=== PATIENT | female | born 1985 ===

== ENCOUNTER 2018-07-06 12:29 | Emergency (ER) | payer MEDICAID ==
[~2018-07-06] VITALS: Ht 154.9 cm; Wt 56.2 kg
[2018-07-06 12:36] VITALS: BP 104/72
[2018-07-06] MEDS ORDERED: NKM (12:42)
[2018-07-06] MEDS ORDERED: ZITHROMAX250 MG ORAL (12:54)
--- NOTE | 2018-07-06 12:54 | Emergency Room Report ---
History of Present Illness General Chief Complaint: Sore Throat Source: Patient Present Illness HPI 32-year-old female with no significant past medical history here complaining of 2 days of pain in her throat and enlarged cervical lymph nodes. Denies ear pain , rhinorrhea, congestion, cough, shortness of breath, palpitation, nausea vomiting, abdominal pain, and all other associated symptoms. Is rating the pain 5 out of 10, difficulty to swallow, no pain radiation, she has been taking ibuprofen with minimal relief. Allergies: Coded Allergies: AMOXICILLIN (Verified Allergy, Unknown, 07/06/18) Patient History Past Medical History: see triage record Past Surgical History: unable to obtain Pertinent Family History: none Now: No - currently on her period Immunizations: UTD Reviewed Nursing Documentation: PMH: Agreed; PSxH: Agreed Nursing Documentation-PMH Hx Asthma: Yes - seasonal Review of Systems All Other Systems: negative except mentioned in HPI Physical Exam Vital Signs Date Time Temp Pulse Resp B/P (MAP) Pulse Ox O2 Delivery O2 Flow Rate FiO2 07/06/18 12:36 98.1 18 104/72 100 Room Air 07/06/18 12:36 76 Sp02 EP Interpretation: reviewed, normal General Appearance: normal inspection, well appearing, no apparent distress, alert Head: normocephalic, atraumatic Eyes: bilateral eye normal inspection, bilateral eye PERRL ENT: hearing grossly normal, no angioedema, normal voice, TMs + canals normal, uvula midline, moist mucus membranes, tonsillar swelling, tonsillar exudate - bilaterally Neck: full range of motion, supple, thyroid normal, other - ant cervical lymphadenopathy Respiratory: normal inspection, chest non-tender, lungs clear, no rhonchi, no wheezing Cardiovascular #1: normal inspection, normal peripheral pulses, no edema, no murmur Gastrointestinal: normal inspection, non tender, soft Genitourinary: no CVA tenderness Musculoskeletal: normal inspection, back normal Neurologic: normal inspection, alert, oriented x3 Psychiatric: normal inspection, judgement/insight normal Skin: normal inspection, no rash, warm/dry Lymphatic: adenopathy - ant cervical Medical Decision Making PA Attestation All my diagnosis and treatment plans were reviewed ad discussed with my supervising physician Dr. Camarillo Diagnostic Impression: Primary Impression: Strep pharyngitis ER Course 32-year-old female with no significant past medical history here complaining of 2 days of pain in her throat and enlarged cervical lymph nodes. Denies ear pain , rhinorrhea, congestion, cough, shortness of breath, palpitation, nausea vomiting, abdominal pain, and all other associated symptoms. Is rating the pain 5 out of 10, difficulty to swallow, no pain radiation, she has been taking ibuprofen with minimal relief. Ddx considered but are not limited to:pharyngitis, strep pharyngitis, URI, peritonsillar abscess Vital signs: are WNL, pt. is afebrile H&PE are most consistent with strep pharyngitis ORDERS: azithromycin ED INTERVENTIONS: None required at this time. DISCHARGE: At this time pt. is stable for d/c to home. Will provide printed patient care instructions, and any necessary prescriptions. Care plan and follow up instructions have been discussed with the patient prior to discharge. Last Vital Signs Date Time Temp Pulse Resp B/P (MAP) Pulse Ox O2 Delivery O2 Flow Rate FiO2 07/06/18 12:36 98.1 76 18 100 Room Air 07/06/18 12:36 104/72 Disposition: HOME, SELF-CARE Condition: Stable Scripts Azithromycin* (ZITHROMAX*) 250 Mg Tablet 250 MG ORAL DAILY, #6 TAB 0 Refills Take two tables once daily for 1 day, then one tablet once daily for 4 days. Prov: Tracey Adam 07/06/18 Patient Instructions: Strep Throat Additional Instructions: follow up With primary care provider, avoid spicy, sweet and greasy food Tracey Adam July 06, 2018 12:54
[2018-07-06 12:58] VITALS: BP 104/72
== END 2018-07-06 12:58 | disposition home or self-care (01) ==
LOC: EMR 12:55
DX: J02.0 Streptococcal pharyngitis (principal); Z88.0 Allergy status to penicillin
CPT/HCPCS: 99282

== ENCOUNTER 2019-04-07 13:44 | Emergency (ER) | payer SELFPAY ==
[~2019-04-07] VITALS: Ht 154.9 cm; Wt 58.1 kg
[~2019-04-07 13:44] MED LIST: NKM; ZITHROMAX250 MG ORAL
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
[2019-04-07 14:19] VITALS: BP 125/79
--- NOTE | 2019-04-07 14:50 | Diagnostic Imaging Report ---
Indication: Orbital and maxillofacial trauma and pain Technique: Continuous helical transaxial imaging of the orbits/maxillofacial structures obtained without intravenous contrast administration. Coronal 2-D reformats were also obtained. Study obtained in a Siemens sensation [address] Automatic Exposure Control was utilized. Total Dose length Product (DLP): [address] Dose Index Volume (CTDIvol): 25.1 mGy Comparison: None Findings: There is no evidence of an acute fracture. Paranasal sinuses and mastoids are clear. Soft tissues are unremarkable. Right nenita bullosa incidentally noted. IMPRESSION: No acute injury [facility] has communicated the preliminary results to the Emergency Department. Their findings are largely concordant with this report. The CT scanner at [facility] is accredited by the [employer] and the scans are performed using dose optimization techniques as appropriate to a performed exam including Automatic Exposure control.
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
--- NOTE | 2019-04-07 15:28 | Diagnostic Imaging Report ---
Indication: Chest trauma pain. Comparison: None Findings: 4 views of the chest wall obtained bilaterally for evaluation of the ribs. Bony mineralization appears normal. There is no acute fracture identified. There is no soft tissue swelling demonstrated. The lungs are essentially clear. The costophrenic angle are sharp. Other osseous structures visualized are unremarkable. Impression: Negative bilateral rib series
[2019-04-07] MEDS ORDERED: IBUPROFEN600 MG ORAL (15:40)
[2019-04-07] MEDS ORDERED: LIDODERM700 M1 TOPIC (15:40)
[2019-04-07] MEDS ORDERED: ROBAXIN-500MG ORAL (15:40)
[2019-04-07 16:05] VITALS: BP 111/67
--- NOTE | 2019-04-07 16:05 | NUR ---
ER DISCHARGE NOTE: Patient is cleared to be discharged per ERMD, pt is aox4, on room air, with stable vital signs. pt was given dc and prescription instructions, pt was able to verbalize understanding, pt id band removed. pt is able to ambulate with steady gait. pt took all belongings.
== END 2019-04-07 16:05 | disposition home or self-care (01) ==
LOC: EMR 14:20
DX: S00.83XD Contusion of other part of head, subsequent encounter (principal); S20.219D Contusion of unspecified front wall of thorax, subsequent encounter; V43.52XD Car driver injured in collision with other type car in traffic accident, subsequent encounter; J45.998 Other asthma; Z88.1 Allergy status to other antibiotic agents
CPT/HCPCS: 70486; 71111; 99284

== ENCOUNTER 2020-05-18 12:12 | Emergency (ER) | payer SELFPAY ==
[~2020-05-18] VITALS: Ht 154.9 cm; Wt 70.3 kg
[~2020-05-18 12:12] MED LIST changes: +IBUPROFEN600 MG ORAL; +LIDODERM700 M1 TOPIC; +ROBAXIN-500MG ORAL
--- NOTE | 2020-05-18 12:41 | NUR ---
ED Nurse Note:pt relates she twisted right ankle on monday and having painful ambulation. pt states she is . relates pain is at ankle bone area. good cms distally
--- NOTE | 2020-05-18 12:43 | NUR ---
ED Nurse Note:portable xrays being done.
--- NOTE | 2020-05-18 13:13 | Emergency Room Report ---
History of Present Illness General Chief Complaint: Lower Extremity Injury Source: Patient Present Illness HPI 34-year-old female presents to ED for right ankle pain. States that she rolled her ankle a few days ago. Notes swelling to her ankle. Pain is throbbing, 7 out of 10, nonradiating. Denies any other injury. States that she borrowed a walking boot from a friend and states it has helped significantly. No other aggravating relieving factors. 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 Patient History Past Medical History: asthma Past Surgical History: none Pertinent Family History: none Social History: Denies: smoking, alcohol use, drug use Last Menstrual Period: feb6 Now: Yes Immunizations: UTD Reviewed Nursing Documentation: PMH: Agreed; PSxH: Agreed Nursing Documentation-PMH Past Medical History: No Stated History Hx Asthma: Yes - seasonal Review of Systems All Other Systems: negative except mentioned in HPI Physical Exam Vital Signs Date Time Temp Pulse Resp B/P (MAP) Pulse Ox O2 Delivery O2 Flow Rate FiO2 05/18/20 12:20 98.6 79 20 144/84 (104) 97 Room Air Sp02 EP Interpretation: reviewed, normal General Appearance: no apparent distress, alert, GCS 15, non-toxic Head: normocephalic, atraumatic Eyes: bilateral eye normal inspection, bilateral eye PERRL ENT: hearing grossly normal, normal pharynx, no angioedema, normal voice Neck: full range of motion, supple/symm/no masses Respiratory: chest non-tender, lungs clear, normal breath sounds, speaking full sentences Cardiovascular #1: regular rate, rhythm, no edema Cardiovascular #2: 2+ carotid (R), 2+ carotid (L), 2+ radial (R), 2+ radial (L), 2+ dorsalis pedis (R), 2+ dorsalis pedis (L) Gastrointestinal: normal bowel sounds, non tender, soft, non-distended, no g uarding, no rebound Rectal: deferred Genitourinary: normal inspection, no CVA tenderness Musculoskeletal: back normal, normal range of motion, gait/station normal, swelling - R ankle Neurologic: alert, motor strength/tone normal, oriented x3, sensory intact, responsive, speech normal Psychiatric: judgement/insight normal, memory normal, mood/affect normal, no suicidal/homicidal ideation Reflexes: 3+ bicep (R), 3+ bicep (L), 3+ tricep (R), 3+ tricep (L), 3+ knee (R), 3+ knee (L) Skin: no rash Lymphatic: no adenopathy Procedures Splinting Splinting : Consent: Verbal Pre-Made Type: SEAN wrap Pre-Proc Neuro Vasc Exam: normal Post-Proc Neuro Vasc Exam: normal Patient Tolerated: Well Complications: None Medical Decision Making Diagnostic Impression: Primary Impression: Ankle sprain Qualified Codes: S93.401A - Sprain of unspecified ligament of right ankle, initial encounter ER Course Hospital Course 34-year-old female presents with right ankle pain and swelling. Rolled her ankle. Is Differential diagnoses include: Fracture, dislocation, sprain, contusion Clinical course Patient placed on stretcher. After initial history and physical, I ordered xrays of R foot and ankle Xrays prelim read shows no acute fracture/dislocation. placed in Sean wrap. Patient came with a walking boot and will continue to wear that. Safe for discharge with close outpatient follow-up Diagnosis - ankle sprain Stable and discharged to home with prescription for Tylenol. apply ice, keep elevated. weight bear as tolerated. Followup with PMD. Return to ED if symptoms recur or worsen Other X-Ray Diagnostic Results Other X-Ray Diagnostic Results #1: X-Ray ordered: R ankle # of Views/Limited Vs Complete: 3 View Indication: Pain EP Interpretation: Yes Interpretation: no dislocation, no soft tissue swelling, no fractures Impression: No acute disease Electronically Signed by: Electronically signed by John Paul Youngblood MD Other X-Ray Diagnostic Results #2: X-Ray ordered: R foot # of Views/Limited Vs Complete: 3 View Indication: Pain EP Interpretation: Yes Interpretation: no dislocation, no soft tissue swelling, no fractures Impression: No acute disease Electronically Signed by: Electronically signed by John Paul Youngblood MD Last Vital Signs Date Time Temp Pulse Resp B/P (MAP) Pulse Ox O2 Delivery O2 Flow Rate FiO2 05/18/20 12:20 98.6 79 20 144/84 (104) 97 Room Air Status: improved Disposition: HOME, SELF-CARE Condition: Stable Scripts Acetaminophen* (TYLENOL EXTRA STRENGTH*) 500 Mg Tablet 500 MG ORAL Q8H PRN for Prn Headache/Temp > 101, #30 TAB 0 Refills Prov: John Paul Youngblood MD 05/18/20 Referrals: NOT CHOSEN IPA/,REFERRING (PCP) John Paul Youngblood MD May 18, 2020 13:13
[2020-05-18] MEDS ORDERED: TYLENOL EXTRA500 MG ORAL (13:29)
--- NOTE | 2020-05-18 13:33 | NUR ---
ER DISCHARGE NOTE: Patient is cleared to be discharged per ERMD, pt is aox4, on room air, with stable vital signs. pt was given dc and prescription instructions, pt was able to verbalize understanding, pt is able to ambulate with steady gait. pt took all belongings.
[2020-05-18 13:34] VITALS: BP 144/84
--- NOTE | 2020-05-18 15:59 | Diagnostic Imaging Report ---
Indication: Pain, status post fall Technique: 3 views of the right ankle Comparison: none Findings: There is equivocal slight widening of the lateral tibiotalar joint space and equivocal alignment abnormality of the lateral ankle mortise. However, there is only minimal if any soft tissue swelling. No acute fracture, no dislocation. Impression: No acute bony trauma Suspect slight subluxation of the talus relative to the tibia and fibula, could indicate lateral ligamentous injury. Correlate with clinical finding
--- NOTE | 2020-05-18 16:23 | Diagnostic Imaging Report ---
Indication: Pain, foot twisted on uneven pavement Technique: 3 views right foot Comparison: none Findings: No acute fracture. No dislocation. The joint spaces are preserved. There is questionable alignment abnormality of the ankle-please refer to that report Impression: No acute bony trauma
== END 2020-05-18 13:35 | disposition home or self-care (01) ==
LOC: EMR 12:37
DX: S93.401A Sprain of unspecified ligament of right ankle, initial encounter (principal); X58.XXXA Exposure to other specified factors, initial encounter; Y92.9 Unspecified place or not applicable; Z88.1 Allergy status to other antibiotic agents
CPT/HCPCS: 99284